=== PATIENT | male | born 1930 | race Caucasian/White ===

== ENCOUNTER 2019-05-02 12:45 | Outpatient (CLI) | payer MEDICARE ==
[2019-05-02] MEDS ORDERED: Iopamidol 370 76% 100 ML VIAL ONE (14:49)
--- NOTE | 2019-05-04 11:25 | CT ---
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 COMPARISON: 09/25/2018. TECHNIQUE: CT angiogram of the head is performed in the axial plane. Three-dimensional reformatted images are collins bmitted for interpretation. FINDINGS: NONCONTRAST HEAD CT: No parenchymal hemorrhage. No extra-axial hematoma. No midline shift. Basilar cisterns are patent. Br ain volume is age-appropriate. Cortical gamez-white matter differentiation is preserved. Mild chronic small vessel ischemic change of white matter. Intact calvarium. There is a small mucus retention cyst in the right maxillary sinus. Remaining sinuses and mastoid air cells are adequately aerated. Postco ntrast images do not demonstrate any pathologic enhancement of the brain parenchyma. CT ANGIOGRAM: The distal cervical internal carotid arteries have appropriate enhancement and luminal diameter. Mild atherosclerosis involving both cavernous segments without significant narrowing. Anterior circulation: Symmetric enhancement and luminal diameter of the M1 segments and proximal MCA branches. No vascular occlusion. The right A1 segment is slightly smaller than the contralateral jazmin e, likely congenital variant. Left A1 segment has appropriate enhancement and luminal diameter. Proxi mal A2 segments are unremarkable. No evidence of an aneurysm at the level of the anterior communicati ng artery. Intracranial vertebral arteries are patent. Right PICA artery origin is unremarkable. Visualized left PICA artery origin is also unremarkable. Both vertebral arteries supply a normal caliber basilar art erasmo. Bilateral P1 segments have appropriate enhancement and luminal diameter. No significant stenosis . There is no evidence of aneurysm of the posterior circulation. IMPRESSION: No evidence of an aneurysm. No vascular occlusion or significant stenosis. POS: CET
== END 2019-05-02 12:46 | disposition home or self-care (01) ==
LOC: TBSIIMAG 12:45
PROVIDERS: ATTEND Neurological Surgery
DX: I67.1 Cerebral aneurysm, nonruptured (principal)
CPT/HCPCS: 70496; 82565; Q9967